=== PATIENT | male | born 1960 | race Caucasian/White ===

== ENCOUNTER → 2020-06-24 | Outpatient (CLI) | payer OTHER ==
[~2020-06-24] MED LIST: ASA81BEC PO; LISINOPRIL40 MG PO; MAGNESIUM500 MG PO; SUBOXONE 8 MG-1 EAC3 SUBLING
== END ==
LOC: LAB 10:19
PROVIDERS: ATTEND Surgery
DX: Z01.812 Encounter for preprocedural laboratory examination (principal); Z20.828 Contact with and (suspected) exposure to other viral communicable diseases

== ENCOUNTER 2020-06-26 06:39 | Day surgery (SDC) | payer OTHER ==
[~2020-06-26] VITALS: Ht 182.9 cm; Wt 121.6 kg
[2020-06-26 07:25] VITALS: BP 113/67
--- NOTE | 2020-06-26 08:00 | EKG ---
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 : 1960 Requested By: Tomy Valles Order Number: [id number] MD: Dillon Villeda Measurements Intervals [place] Rate: 75 P: 71 MS: 135 QRS: -30 QRSD: 85 T: 30 QT: 379 QTc: 424 Interpretive Statements Sinus rhythm Abnormal R-wave progression, early transition Inferior infarct, old No previous ECG available for comparison Electronically Signed On 06-26-2020 8:00:01 MANAGER PERIOPERATIVE by Dillon Villeda [email or web address] <ELECTRONICALLY SIGNED> By: Dillon Villeda MD, [facility] 06/26/20 [phone] Dillon Villeda MD, FACC /EPI
[2020-06-26] MEDS ORDERED: ACETAMINOPHEN325 M1 PO (08:39)
[2020-06-26] MEDS ORDERED: IBUPROFEN 200200 M1 PO (08:39)
[2020-06-26] MEDS ORDERED: COLACE 100 MG100 MG PO (08:40)
[2020-06-26] MEDS ORDERED: MIRALAX17 GM PO (08:40)
[2020-06-26] MEDS ORDERED: NEURONTIN 300M300 M2 PO (08:40)
[2020-06-26 10:31] VITALS: BP 113/67
--- NOTE | 2020-07-02 09:37 | PATH ---
[facility] [address] [place] [address] PATHOLOGY RPT PROCEDURE Name: LIAM SHER Room #: DEP [facility]..#: [id number] Admission: 06/26/20 Date of : 56 Discharge: 06/26/20 Report #: [id number] Path Case #: [id number] [facility] Accession Number: [id number] . 01 Material submitted: . gastrointestinal site - CORD LIPOMA AND HERNIAL SAC . 02 Diagnosis: Cord lipoma and hernia sac: - Mature adipose tissue compatible with a lipoma. - Fibrovascular connective tissue with reactive changes compatible with a hernia sac. (IUV:pit 06/28/2020) QTP 06/28/2020 1311 Local . 02 Electronically signed: . Verna Wen MD, Pathologist NPI- [id number] . 01 Gross description: . The specimen is received in formalin, labeled "Sher, Liam, cord lipoma and hernial sac was "and consists of of 2 segments of rubbery pink-miller tissue and yellow lobulated tissue measuring 8.6 x 4.2 x 1.4 cm. No gross lesions identified and bilingual call center representative tissue is submitted in A1. (SDY; 06/27/2020) SYU/SYU 06/27/2020 1358 Local . 02 Pathologist provided ICD-10: K40.90 . 02 CPT . 813539 Specimen Comment: A courtesy copy of this report has been sent to [phone] Specimen Comment: Report sent to Specimen Comment: A duplicate report has been generated due to demographic updates. Performed at: [address] [facility], [place], [place] [id number] MD Quan Andrade MD Phone: [phone] Performed at: [address], [place] [id number] MD Verna Wen MD Phone: [phone]
== END 2020-06-26 11:10 | disposition home or self-care (01) ==
LOC: OR 06:39 → TBA 06:44 → OR 11:01
PROVIDERS: ATTEND Surgery
DX: K40.90 Unilateral inguinal hernia, without obstruction or gangrene, not specified as recurrent (principal); D17.6 Benign lipomatous neoplasm of spermatic cord; I10 Essential (primary) hypertension; Z98.890 Other specified postprocedural states; Z79.899 Other long term (current) drug therapy; Z87.891 Personal history of nicotine dependence; Z79.82 Long term (current) use of aspirin
CPT/HCPCS: 50010; 50101; 50386; 50417; 54111; 54118; 56524; 56525; 56526; 62110; 62900; 64039; 70005